=== PATIENT | female | born 1970 | race Caucasian/White ===

== ENCOUNTER 2024-03-11 12:06 | Emergency (ER) | payer OTHER ==
[~2024-03-11] VITALS: Ht 170.2 cm; Wt 116.7 kg
[~2024-03-11 12:06] MED LIST: FLEXERIL10 MG PO; HYDROCODON-ACE1 EA10 PO; NORCO 5-325 TA1 EACH PO; PREDNISONE20 MG PO
[2024-03-11] MEDS ORDERED: OMEPRAZOLE20 MG PO (13:21)
[2024-03-11 13:47] LABS: BILIRUBIN, URINE POSITIVE (negative); BLOOD/HGB, URINE NEGATIVE (Negative); KETONE, URINE >=80 (Negative); LEUK ESTERASE, URINE NEGATIVE (negative); NITRITE, URINE NEGATIVE (negative)
[2024-03-11 14:06] LABS: BASOPHILS 0.4 % (0-2); HEMATOCRIT 41.2 % (35.0-50.0); HEMOGLOBIN 13.6 g/dL (12.0-18.0); LYMPHOCYTES 21.2 % (24-44); MCH 27.6 (27-36); MCHC 32.9 g/dl (30-36); MCV 83.8 fl (81-99); NEUTROPHILS 68.4 % (39-80); PLATELET COUNT 173 K/uL (140-440); RBC 4.92 M/ul (4.3-5.7); RDW 14.7 (10.5-15.0)
[2024-03-11] MEDS ORDERED: SODIUM CHLORIDE 0.9% 1,000 ML IV ONE (14:15)
[2024-03-11 14:21] LABS: ALBUMIN 3.7 g/dL (3.4-5.0); ALBUMIN/GLOBULIN RATIO 0.93 (1.1-2.4); ANION GAP 16.9 (7-21); BILIRUBIN, TOTAL 0.7 ng/dL (0.2-1.0); BUN/CREATININE RATIO 16.09 (6.0-28.6); CALCIUM 9.2 mg/dL (8.5-10.1); CREATININE, SERUM 0.87 mg/dL (0.55-1.02); POTASSIUM 2.9 mmol/L (3.5-5.1); PROTEIN, TOTAL 7.7 g/dL (6.4-8.2)
[2024-03-11] MEDS ORDERED: diphenhydrAMINE HCL 50 MG/ML VIAL IV ONE (15:30)
[2024-03-11] MEDS ORDERED: PROCHLORPERAZINE EDISYLATE 10 MG/2 ML VIAL IV ONE (15:30)
[2024-03-11] MEDS ORDERED: KETOROLAC TROMETHAMINE 15 MG/ML VIAL IV ONE (15:30)
[2024-03-11] MEDS ORDERED: POTASSIUM CHLORIDE 20 MEQ/15 ML CUP PO ONE (16:15)
[2024-03-11] MEDS ORDERED: EFFER-K 10 MEQ10 MEQ PO (16:20)
[2024-03-11 16:50] VITALS: BP 131/75
--- NOTE | 2024-03-11 17:22 | EKG ---
[facility] [address] [facility] [place], [place] [address] Signed Normal sinus rhythm Normal ECG No previous ECGs available Confirmed by Alexa Ventura ([id number]) on 03/11/2024 5:22:01 PM Electronically Signed By: ALEXA VENTURA MD 03/11/24 1722 PATIENT NAME: CHRISTIANA ARTEAGA Electrocardiogram DATE OF : 66 PHYSICIAN: ALEXA VENTURA MD REPORT #: [id number] REPORT IS CONFIDENTIAL AND NOT TO BE RELEASED WITHOUT AUTHORIZATION
== END 2024-03-11 16:45 | disposition home or self-care (01) ==
LOC: ED 12:06
PROVIDERS: Emergency Medicine
DX: R42 Dizziness and giddiness (principal); M25.50 Pain in unspecified joint; E87.6 Hypokalemia
CPT/HCPCS: 36415; 71045; 80053; 81003; 83605; 83735; 85025; 93005; 93010; 96374; 96375; 99284-25; A9270; J0780; J1200; J1885; J7030

== ENCOUNTER 2025-09-23 11:52 | Emergency (ER) | payer OTHER ==
[~2025-09-23] VITALS: Ht 170.2 cm; Wt 80.2 kg
[~2025-09-23 11:52] MED LIST changes: +EFFER-K 10 MEQ10 MEQ PO; +OMEPRAZOLE20 MG PO
[2025-09-23] MEDS ORDERED: SODIUM CHLORIDE 0.9% 1,000 ML IV ONE (12:15)
[2025-09-23] MEDS ORDERED: KETOROLAC TROMETHAMINE 30 MG/ML VIAL IV ONE (12:15)
[2025-09-23] MEDS ORDERED: KETOROLAC TROMETHAMINE 15 MG/ML VIAL IV ONE (12:15)
[2025-09-23 12:17] LABS: BASOPHILS 0.7 % (0.1-1.2); EOSINOPHILS 6.8 % (0.7-5.8); LYMPHOCYTES 48.5 % (19.3-51.7); MCH 28.9 PG (25.6-32.2); MCHC 33.2 g/dL (32.2-35.5); MCV 86.9 fL (79.4-94.8); MONOCYTES 8.4 % (4.7-12.5); NEUTROPHILS 35.4 % (34.0-71.1); RBC 4.19 M/uL (3.93-5.22)
[2025-09-23] MEDS ORDERED: ESCITALOPRAM OX20 MG PO (12:17)
[2025-09-23 12:36] LABS: ALT (SGPT) 10.0 U/L (14-59); AST (SGOT) 10.0 U/L (15-37); GLOMERULAR FILTRATION RATE,EST 90.0 mL/min (>60); PROTEIN, TOTAL 7.1 g/dL (6.4-8.2); UREA NITROGEN 19.0 mg/dL (7-18)
[2025-09-23] MEDS ORDERED: HYDROmorphone HCL 1 MG/ML SYR IV PRN (13:15)
[2025-09-23 13:17] LABS: BLOOD/HGB, URINE LARGE (Negative); KETONE, URINE TRACE (Negative); LEUK ESTERASE, URINE SMALL (negative); NITRITE, URINE NEGATIVE (negative)
[2025-09-23 13:27] LABS: BACTERIA, URINE 1+ /hpf (negative); CASTS, URINE NONE SEEN \\lpf; CRYSTALS, URINE NONE SEEN (0-1+); EPITHELIAL CELLS, URINE SQUAMOUS 1+ /lpf (0-1+)
[2025-09-23 13:28] LABS: REFLEX CULTURE, URINE Yes (No)
[2025-09-23] MEDS ORDERED: TAMSULOSIN HCL 0.4 MG CAP PO ONE (13:30)
[2025-09-23] MEDS ORDERED: HYDROCODONE/ACETA 7.5/325 TAB PO ONE (13:30)
[2025-09-23] MEDS ORDERED: HYDROCODON-ACE1 EA10 PO (13:32)
[2025-09-23] MEDS ORDERED: FLOMAX0.4 MG PO (13:32)
[2025-09-23] MEDS ORDERED: ONDANSETRON ODT8 MG PO (13:32)
[2025-09-23 14:59] VITALS: BP 122/77
== END 2025-09-23 14:58 | disposition home or self-care (01) ==
LOC: ED 11:52
PROVIDERS: Emergency Medicine
DX: N13.2 Hydronephrosis with renal and ureteral calculous obstruction (principal)
CPT/HCPCS: 36415; 74176; 80053; 81001; 85025; 87077; 87088; 96361; 96374; 96375; 99284-25; A9270; J1171; J1885; J2405; J7030